=== PATIENT | male | born 1950 | race Caucasian/White ===

== ENCOUNTER 2020-01-30 18:45 | Inpatient (IN) | payer MEDICARE, SELFPAY ==
[2020-01-30 18:47] VITALS: BP 112/75; PULSE 69; RESP 18; TEMP 36.8; O2SAT 99; BMI 20.3
--- NOTE | 2020-01-30 18:50 | ECG_ITS ---
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
--- NOTE | 2020-01-30 18:50 | XRR_ITS ---
PROCEDURE INFORMATION: Exam: XR Chest, 1 View Exam date and time: 01/30/2020 7:11 PM Age: 69 years old Clinical indication: Shortness of breath; Additional info: AMS TECHNIQUE: Imaging protocol: XR of the chest Views: 1 view. COMPARISON: No relevant prior studies available. FINDINGS: Tubes, catheters and devices: Pacemaker. Lungs: COPD/chronic bronchitis. No visible active interstitial or alveolar airspace disease. Pleural space: Unremarkable. No pleural effusion. No pneumothorax. Heart/Mediastinum: Unremarkable. No cardiomegaly. Bones/joints: Mild scoliosis of the spine. XR/XR chest 1V portable [id number] IMPRESSION: Nonacute.
--- NOTE | 2020-01-30 18:51 | W.ED.AMS ---
HPI - Altered Mental Status General: Chief Complaint: Altered Mental Status Stated Complaint: ams/confusion Time Seen by Provider: 01/30/20 18:47 Source: patient and EMS Mode of arrival: EMS Limitations: altered mental status History of Present Illness: HPI narrative: 69-year-old male who presents with EMS. Patient states he believes he is homeless but he is quite confused. Patient walked into the [facility] restaurant and they called EMS as he was unable to answer many questions. He states he is HIV positive last thing he represents that he lived in [facility]. He does know his name and his birthdate but is unsure of the year. Patient gives very sporadic answers. History is difficult to obtain. Associated symptoms: Deny depression Review of Systems Const: Denies: fever(s), chills, body aches or change in appetite Eyes: Denies: blurry vision or eye discomfort ENMT: Denies: throat pain or dental pain Card: Denies: chest pain Resp: Denies: dyspnea GI: Denies: abdominal pain, nausea, vomiting or diarrhea : Denies: dysuria Musc: Denies: neck pain or back pain Skin/Breast: Denies: rash Neuro: Reports: confusion Psych: Denies: depression Oscar/Lymph: Denies: easy bruising All/Imm: Denies: urticaria Physical Exam Const: COMMON NORMALS: negative for patient oriented x3 EXAM LIMITATIONS: altered mental status GENERAL APPEARANCE: disheveled HENMT: COMMON NORMALS: normocephalic and atraumatic HEAD & SCALP: normocephalic and atraumatic Eye: COMMON NORMALS: Equal, round and reactive pupils present and EOMs intact bilaterally PUPIL: Yes Equal, round and reactive pupils present Neck/C-Spine: COMMON NORMALS: full ROM and supple Chest: COMMONS NORMALS: normal inspection of the chest and normal palpation of entire chest wall Resp: COMMON NORMALS: normal respiratory effort, No retractions, No use of accessory muscles and clear to auscultation bilaterally AUSCULTATION: clear to auscultation bilaterally Cardio: COMMON NORMALS: regular rate, regular rhythm and No murmurs present (Cardio) RATE: regular rate RHYTHM: regular rhythm GI: COMMON NORMALS: Normal to inspection, nondistended, normoactive bowel sounds present, Soft to palpation, non-tender and no masses PALPATION: Yes Soft to palpation Extremity: COMMON NORMALS: normal to inspection and full ROM Neuro: COMMON NORMALS: moves all extremities and no focal motor deficits; negative for patient oriented x3 Psych: COMMON NORMALS: cooperative; negative for mental status grossly normal and negative for Normal thought process present THOUGHT PROCESS: abnormal Skin: COMMON NORMALS: no rashes or lesions noted and no wounds GENERAL SKIN EXAM: no rashes or lesions noted Course Vital Signs: Vital signs: Vital Signs Temperature 98.2 F 01/30/20 18:47 Pulse Rate 81 01/30/20 20:12 Respiratory Rate 16 01/30/20 20:12 Blood Pressure 137/79 01/30/20 20:12 Pulse Oximetry 97 01/30/20 20:12 MDM - Altered Mental Status MDM Narrative: Medical decision making narrative: Patient presents here with altered mental status and is quite confused here. Patient's drug screen came back for methamphetamine is likely causing his confusion. Other work-up including CT head here are normal. Spoke to hospitalist and will admit for observation. Lab Data: Labs: Lab Results 01/30/20 01/30/20 01/30/20 Range/Units 19:00 19:00 19:00 WBC 4.0 (4.0-10.0) 10^3/ uL RBC 4.64 (4.1-5.3) 10^6/u L Hgb 13.6 (11.7-16.6) g/dL Hct 41.1 L (42.0-52.0) % MCV 88.6 (80-94) fL MCH 29.3 (28.0-34.0) pg MCHC 33.1 (30.0-36.0) g/dL RDW 12.9 (12.1-15.1) % Plt Count 184 (130-400) 10^3/c mm MPV 10.1 (7.4-10.4) fL Neut % (Auto) 65.5 % Lymph % (Auto) 15.7 % [place] % (Auto) 12.2 % Eos % (Auto) 5.2 % Baso % (Auto) 1.2 % Neut # (Auto) 2.63 (1.8-7.7) 10^3/u L Lymph # (Auto) 0.6 L (0.8-4.8) 10^3/u L Hope[place] # (Auto) 0.5 (0.2-0.9) 10^3/u L Eos # (Auto) 0.2 (0.0-0.8) 10^3/u L Baso # (Auto) 0.1 (0.0-0.1) 10^3/u L Nucleated RBC % (a uto) 0 % Nucleated RBCs # 0.0 /100WBC PT 12.80 (12.1-14.9) SECO NDS INR 0.94 (0.8-1.2) Sodium 135 L (136-145) mmol/L Potassium 3.6 (3.5-5.1) mmol/L Chloride 98 (98-107) mmol/L Carbon Dioxide 27 (22-29) mmol/L Anion Gap 13.6 (5-19) BUN 15 (8-23) mg/dL Creatinine 1.3 H (0.7-1.2) mg/dL GFR Calculation 55.1 L (90-130) mL/min Glucose 94 (65-115) mg/dL Calculated Osmolal ity 281 L (285-295) mOsm/k g Calcium 9.6 (8.5-10.5) mg/dL Total Bilirubin 0.5 (0.15-1.2) mg/dL AST 26 (0-40) U/L ALT 22 (0-41) U/L Alkaline Phosphata se 101 (40-130) IU/L Ammonia (16-60) umol/L Total Protein 7.7 (6.6-8.7) g/dL Albumin 4.3 (3.5-5.2) g/dL Globulin 3.4 (1.3-4.6) g/dL Urine Color (Yellow) Urine Appearance (CLEAR) Urine pH (5-7) Ur Specific Gravit y (1.005-1.030) Urine Protein (Negative) Urine Glucose (UA) (Normal) Urine Ketones (Negative) Urine Blood (Negative) Urine Nitrate (Negative) Urine Bilirubin (Negative) Urine Urobilinogen (Negative) mg/dL Ur Leukocyte Concepc[place] ase (Negative) Salicylates < 0.3 L (3-10) mg/dL Urine Opiates Scre en (Negative) ng/mL Acetaminophen < 5.0 L (10-30) ug/mL Ur Barbiturates Sc reen (Negative) ng/mL Ur Phencyclidine S crn (Negative) ng/mL Ur Amphetamines Sc reen (Negative) ng/mL U Benzodiazepines Scrn (Negative) ng/mL Urine Cocaine Scre en (Negative) ng/mL U Marijuana (THC) Screen (Negative) ng/mL Ethyl Alcohol < 10 (0-10) mg/dL 01/30/20 01/30/20 01/30/20 Range/Units 19:00 19:55 19:55 WBC (4.0-10.0) 10^3/ uL RBC (4.1-5.3) 10^6/u L Hgb (11.7-16.6) g/dL Hct (42.0-52.0) % MCV (80-94) fL MCH (28.0-34.0) pg MCHC (30.0-36.0) g/dL RDW (12.1-15.1) % Plt Count (130-400) 10^3/c mm MPV (7.4-10.4) fL Neut % (Auto) % Lymph % (Auto) % Hopewell % (Auto) % Eos % (Auto) % Baso % (Auto) % Neut # (Auto) (1.8-7.7) 10^3/u L Lymph # (Auto) (0.8-4.8) 10^3/u L Hopewell # (Auto) (0.2-0.9) 10^3/u L Eos # (Auto) (0.0-0.8) 10^3/u L Baso # (Auto) (0.0-0.1) 10^3/u L Nucleated RBC % (a uto) % Nucleated RBCs # /100WBC PT (12.1-14.9) SECO NDS INR (0.8-1.2) Sodium (136-145) mmol/L Potassium (3.5-5.1) mmol/L Chloride (98-107) mmol/L Carbon Dioxide (22-29) mmol/L Anion Gap (5-19) BUN (8-23) mg/dL Creatinine (0.7-1.2) mg/dL GFR Calculation (90-130) mL/min Glucose (65-115) mg/dL Calculated Osmolal ity (285-295) mOsm/k g Calcium (8.5-10.5) mg/dL Total Bilirubin (0.15-1.2) mg/dL AST (0-40) U/L ALT (0-41) U/L Alkaline Phosphata se (40-130) IU/L Ammonia 25 (16-60) umol/L Total Protein (6.6-8.7) g/dL Albumin (3.5-5.2) g/dL Globulin (1.3-4.6) g/dL Urine Color Yellow (Yellow) Urine Appearance Clear (CLEAR) Urine pH 6.5 (5-7) Ur Specific Gravit y 1.005 (1.005-1.030) Urine Protein Neg (Negative) Urine Glucose (UA) Norm (Normal) Urine Ketones Negative (Negative) Urine Blood Neg (Negative) Urine Nitrate Negative (Negative) Urine Bilirubin Neg (Negative) Urine Urobilinogen 4 H (Negative) mg/dL Ur Leukocyte Concepc[place] ase Negative (Negative) Salicylates (3-10) mg/dL Urine Opiates Scre en Negative (Negative) ng/mL Acetaminophen (10-30) ug/mL Ur Barbiturates Sc reen Negative (Negative) ng/mL Ur Phencyclidine S crn Negative (Negative) ng/mL Ur Amphetamines Sc reen Positive H (Negative) ng/mL U Benzodiazepines Scrn Negative (Negative) ng/mL Urine Cocaine Scre en Negative (Negative) ng/mL U Marijuana (THC) Screen Negative (Negative) ng/mL Ethyl Alcohol (0-10) mg/dL Imaging Data^: CXR: Attestation: I personally reviewed and interpreted this imaging study as follows: My impression: no acute abnormality CT Head: Radiologist's impression: [address] [address] [address] Scan Report Signed Patient: Jah Velasquez Unit #: [id number] : 1950 Age/Sex: 69 / M ADM Date: 01/30/20 Loc: ER Room/Bed: Attending Dr: Ordering Provider/Ordering MD: Bill Mart MD Date of Service: 01/30/20 Procedure(s): CT head wo con* [id number] Accession Number(s): [id number] Report Number: [id number] PROCEDURE INFORMATION: Exam: CT Head Without Contrast Exam date and time: 01/30/2020 6:59 PM Age: 69 years old Clinical indication: Altered mental status/memory loss; Confusion or disorientation; Patient HX: AMS TECHNIQUE: Imaging protocol: Computed tomography of the head without contrast. Radiation optimization: All CT scans at this facility use at least one of these dose optimization techniques: automated exposure control; mA and/or kV adjustment per patient size (includes targeted exams where dose is matched to clinical indication); or iterative reconstruction. COMPARISON: No relevant prior studies available. RADIATION DOSE METRICS: Total DLP (mGy-cm): 869.63 FINDINGS: Brain: No evidence of active or acute intracranial pathologic process, hemorrhage, or trauma. No visible evidence of diffuse cerebral edema or generalized demyelination. Mild small vessel ischemic disease with senile periventricular leukomalacia. No mass effect. No midline shift. Cerebral and cerebellar atrophy with ventricular dilatation greater than that anticipated for patient's chronological age. Cerebral ventricles: No ventriculomegaly. Bones/joints: Unremarkable. No acute fracture. Paranasal sinuses: Visualized sinuses are unremarkable. No fluid levels. Mastoid air cells: Visualized mastoid air cells are well aerated. Soft tissues: Unremarkable. Other findings: Motion artifact. CT/CT head wo con* [id number] IMPRESSION: 1. No evidence of active or acute intracranial pathologic process, hemorrhage, or trauma. 2. Mild small vessel ischemic disease with senile periventricular leukomalacia. 3. Cerebral and cerebellar atrophy with ventricular dilatation greater than that anticipated for patient's chronological age. EKG Data^: EKG 1: Attestation: I personally reviewed and interpreted this EKG as follows: EKG interpretation date: 01/30/20 EKG interpretation time: 18:57 Interpretation: paced rhythm hr [address] or t wave abnormalities qrs 143 qtc 445 Discharge Plan Discharge Patient Disposition: Admitted As Inpatient Admit Provider: Joanne Peña Clinical Impression: Methamphetamine abuse Altered mental status Qualifiers: Altered mental status type: unspecified Qualified Code(s): R41.82 - Altered mental status, unspecified Condition: Stable Coding Level of Care Code ED Teacher'S Assistant for [facility] Fwd Exam Comprehensive
[2020-01-30 19:27] LABS: Basophils # 0.1 10^3/uL (0.0-0.1); Basophils % 1.2 %; Eosinophils # 0.2 10^3/uL (0.0-0.8); Eosinophils % 5.2 %; Hematocrit 41.1 % (42.0-52.0); Hemoglobin 13.6 g/dL (11.7-16.6); Lymphocytes # 0.6 10^3/uL (0.8-4.8); Lymphocytes % 15.7 %; Mean Corpuscular HGB Conc 33.1 g/dL (30.0-36.0); Mean Corpuscular Hemoglobin 29.3 pg (28.0-34.0); Mean Corpuscular Volume 88.6 fL (80-94); Mean Platelet Volume 10.1 fL (7.4-10.4); Monocytes # 0.5 10^3/uL (0.2-0.9); Monocytes % 12.2 %; Neutrophils # 2.63 10^3/uL (1.8-7.7); Neutrophils % 65.5 %; Nucleated Red Blood Cells % 0 %; Platelet Count 184 10^3/cmm (130-400); Red Blood Count 4.64 10^6/uL (4.1-5.3); Red Cell Distribution Width 12.9 % (12.1-15.1)
[2020-01-30 19:34] LABS: INR 0.94 (0.8-1.2)
[2020-01-30 19:44] LABS: Alanine Aminotransferase 22 U/L (0-41); Albumin Level 4.3 g/dL (3.5-5.2); Alkaline Phosphatase 101 IU/L (40-130); Anion Gap 13.6 (5-19); Aspartate Amino Transferase 26 U/L (0-40); Blood Urea Nitrogen 15 mg/dL (8-23); Calcium 9.6 mg/dL (8.5-10.5); Carbon Dioxide 27 mmol/L (22-29); Chloride 98 mmol/L (98-107); Globulin 3.4 g/dL (1.3-4.6); Glomerular Filtration Rate 55.1 mL/min (90-130); Glucose 94 mg/dL (65-115); Osmolality Calculated 281 mOsm/kg (285-295); Potassium 3.6 mmol/L (3.5-5.1); Sodium 135 mmol/L (136-145); Total Bilirubin 0.5 mg/dL (0.15-1.2); Total Protein 7.7 g/dL (6.6-8.7)
[2020-01-30 19:46] LABS: Ammonia 25 umol/L (16-60)
[2020-01-30 19:48] LABS: Acetaminophen < 5.0 ug/mL (10-30); Alcohol Level < 10 mg/dL (0-10); Salicylate < 0.3 mg/dL (3-10)
[2020-01-30 20:03] LABS: Add Urine Microscopic? NO
[2020-01-30 20:12] VITALS: BP 137/79; PULSE 81; RESP 16; O2SAT 97
[2020-01-30 20:17] LABS: Bilirubin Urine Neg (Negative); Blood Urine Neg (Negative); Glucose Urine UA Norm (Normal); Ketones Urine Negative (Negative); Leukocyte Esterase Urine Negative (Negative); Nitrate Urine Negative (Negative); Protein Urine Neg (Negative); Specific Gravity, Urine 1.005 (1.005-1.030); Urine Appearance Clear (CLEAR); Urine Color Yellow (Yellow); Urobilinogen Urine 4 mg/dL (Negative); pH Urine 6.5 (5-7)
[2020-01-30 20:19] LABS: Amphetamines Screen Urine Positive (Negative); Barbiturates Screen Urine Negative (Negative); Benzodiazepines Screen Urine Negative (Negative); Cocaine Screen Urine Negative (Negative); Opiate Screen Urine Negative (Negative); PCP Screen Urine Negative (Negative); THC Screen Urine Negative (Negative)
[2020-01-30 21:00] VITALS: RESP 16
--- NOTE | 2020-01-30 21:11 | PC.NURSE ---
Report called to Fransico LÓPEZ on CSU unit.
[2020-01-30 21:15] VITALS: BP 125/85; PULSE 82; O2SAT 97
--- NOTE | 2020-01-30 21:25 | P.HP_ITS ---
Providers/Chief Complaint Admitting Physician: Joanne Peña MD Chief Complaint: ams/confusion History of Present Illness Jah Velasquez is a 69 year old male with unknown PMH but states he has HIV was brought to ER by EMS today for AMS. He walked into a [employer] restaurant today and was noted to be quite confused, so EMS was called. Since presentation here, he has been giving haphazard answers and is disoriented. Upon my evaluation he is able to tell me his name, states he is about 67, c/o abdominal pain, answers yes or no to some basic questions regarding pain, diarrhea, etc but overall is quite confused. He speech appears to be pressured and intermittently dysarthric. He follows commands to move all extremities and is able to ambulate to the bathroom independently though gait is slightly unsteady. Diagnostics in the ER notable for cr 1.3, normal salicylate and tylenol level but urine amphetamine screen +, ethyl alcohol negative. Review of Systems General: Reports: ROS unobtainable due to medical condition and ROS isa btainable due to mental status Medications/Allergies Home Medications Medication Instructions Recorded Confirmed Last Taken Type Unable to Assess 01/30/20 01/30/20 Unknown History Allergies Allergy/AdvReac Type Severity Reaction Status Date / Time Unable to Assess Allergy Verified 01/30/20 23:04 Vitals/I&O/Wt Last Vital Signs Temp 98.2 F 01/30/20 18:47 Pulse 81 01/30/20 20:12 Resp 16 01/30/20 20:12 BP 137/79 01/30/20 20:12 Pulse Ox 97 01/30/20 20:12 Weight last 48 hrs Weight 68.039 kg Physical Exam Narrative: EXAM NARRATIVE: GEN: Awake, disoriented , random haphazard answers, disheveled CVS: S1S2 N RS: CTA B/L Abd: Soft, nt/nd , bs+ 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, ambulates independently, gait is unsteady Data : 01/30/20 19:00 01/30/20 19:00 A&P Assessment and plan (1) Altered mental status: No past history available Ct head without any acute intracraial events, age related changes noted, no masses Differentials include methamphetamine intoxication, ?post ictal state, less likely meningitis given no neck stiffness or fever reported h/o HIV, check screening ag/ab, serum Cryptococcal ag given AMS If screen +, check Cd4 count and HIV VL admitted for close neuroobservation, aspiration and seizure precautions dysphagia screening multiple track desai noted over both hands with swelling over left hand, check blood cx and Us soft tissue left hand monitor off abx for now Status: Acute Qualifiers: Altered mental status type: unspecified Qualified Code(s): R41.82 - Altered mental status, unspecified (2) Methamphetamine abuse: continuous telemetry, monitor for arrhythmias or signs of withdrawal Status: Acute Attestations Medical Necessity Statement*: anticipate >2Midnight admission for evaluation and managemnet of AMS Coding Level of Care Code Acute Gastroenterology Nurse Practitioner for [facility] Fwd Diagnoses Altered mental status R41.82 Altered mental status type: unspecified Methamphetamine abuse F15.10
[2020-01-30 21:31] VITALS: BP 125/63; PULSE 70; RESP 22; TEMP 36.4; O2SAT 99
--- NOTE | 2020-01-30 22:11 | PC.NURSE ---
Patient admitted to room 111-2 via wheelchair and ER staff. Patient alert but lethargic. Patient able to answer questions but is not able to maintain attention for very long, Patient drifts in and out and was reaching for things that were not there. Patient unable to provide adequate medical history. Patient is slow to answer and at times falls asleep in the middle of his answer then wakes up and says what was the question. Patient is alert to person and place(hospital) but not aware of the situation or current time. Able to recall with prompting but only for a short while. Patient has no open areas on skin. Some bruising noted otherwise skin warm dry and intact. Mental status questionable moderate weakness noted. PERRLA with 5 mm pupil opening noted. gait unsteady but patient able to follow directions. No aggitation noted at this time.
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
[2020-01-30 23:26] LABS: SARS Covid-2 Antigen Negative (Negative)
[2020-01-30] MEDS: enoxaparin 40 mg/0.4 mL Syringe SUBCUT (23:55)
[2020-01-31] VITALS (12 sets, daily range): BP systolic 116–133; BP diastolic 63–86; PULSE 71–111; RESP 13–22; TEMP 36.1–36.9; O2SAT 96–98
[2020-01-31 04:42] LABS: HIV 1 & 2 Antibody Reactive (Non-Reactiv); HIV 1 & 2 Antigen Non-Reactive (Non-Reactiv)
[2020-01-31 06:52] LABS: Basophils % 1.5 %; Eosinophils # 0.3 10^3/uL (0.0-0.8); Eosinophils % 12.2 %; Hematocrit 40.3 % (42.0-52.0); Hemoglobin 13.3 g/dL (11.7-16.6); Lymphocytes # 0.7 10^3/uL (0.8-4.8); Lymphocytes % 26.7 %; Mean Corpuscular Volume 87.8 fL (80-94); Mean Platelet Volume 10.4 fL (7.4-10.4); Monocytes # 0.4 10^3/uL (0.2-0.9); Monocytes % 13.4 %; Neutrophils % 45.8 %; Nucleated Red Blood Cells % 0 %; Platelet Count 180 10^3/cmm (130-400); Red Blood Count 4.59 10^6/uL (4.1-5.3); Red Cell Distribution Width 12.8 % (12.1-15.1); White Blood Count 2.6 10^3/uL (4.0-10.0)
[2020-01-31 07:14] LABS: Alanine Aminotransferase 20 U/L (0-41); Albumin Level 3.7 g/dL (3.5-5.2); Alkaline Phosphatase 86 IU/L (40-130); Anion Gap 12.5 (5-19); Aspartate Amino Transferase 23 U/L (0-40); Blood Urea Nitrogen 16 mg/dL (8-23); Carbon Dioxide 26 mmol/L (22-29); Chloride 102 mmol/L (98-107); Globulin 3.2 g/dL (1.3-4.6); Glomerular Filtration Rate 60.4 mL/min (90-130); Glucose 92 mg/dL (65-115); Osmolality Calculated 285 mOsm/kg (285-295); Potassium 3.5 mmol/L (3.5-5.1); Sodium 137 mmol/L (136-145); Thyroid Stimulating Hormone 1.28 uIU/mL (0.27-4.20); Total Bilirubin 0.4 mg/dL (0.15-1.2); Total Protein 6.9 g/dL (6.6-8.7)
[2020-01-31 07:34] LABS: Estmated Average Glucose 103; Hemoglobin A1C 5.2 % (4.0-6.0)
[2020-01-31 07:48] LABS: Hepatitis A Antibody IgM Non-Reactive (Nonreactive); Hepatitis B Surface Antigen Non-Reactive (Nonreactive)
[2020-01-31 09:09] LABS: Hepatitis B Surface AB 13.3 (0-8.5)
[2020-01-31 09:10] LABS: Hepatitis B Core AB, Total Reactive (Nonreactive); Hepatitis C Virus Antibody Reactive (Nonreactive)
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
[2020-01-31] MEDS: enoxaparin 40 mg/0.4 mL Syringe SUBCUT (22:31)
--- NOTE | 2020-01-31 23:16 | USR_ITS ---
PROCEDURE INFORMATION: Exam: US Unlisted Ultrasound Procedure Exam date and time: 01/31/2020 8:32 AM Age: 69 years old Clinical indication: Symptoms: Swelling of left hand TECHNIQUE: Imaging protocol: Unlisted ultrasound procedure (eg, diagnostic, interventional). COMPARISON: No relevant prior studies available. FINDINGS: Procedural imaging: Ultrasound imaging was performed over the dorsal surface of the left hand with the patient pointed to pain in the left middle finger. Examination showed mild subcutaneous edema with small amount of interstitial fluid. No discrete fluid collection or masses were seen in this area.. US/US soft tissue/extremity [id number] IMPRESSION: There is mild subcutaneous edema in the area of patient pain and swelling. No other significant abnormality detected.
[2020-02-01] VITALS (27 sets, daily range): BP systolic 110–150; BP diastolic 68–91; PULSE 63–96; RESP 13–21; TEMP 29.4–37.1; O2SAT 96–98
[2020-02-01 03:58] LABS: Basophils % 1.3 %; Eosinophils # 0.4 10^3/uL (0.0-0.8); Eosinophils % 11.5 %; Hematocrit 39.1 % (42.0-52.0); Hemoglobin 12.7 g/dL (11.7-16.6); Lymphocytes % 32.3 %; Mean Corpuscular HGB Conc 32.5 g/dL (30.0-36.0); Mean Corpuscular Hemoglobin 29.1 pg (28.0-34.0); Mean Corpuscular Volume 89.7 fL (80-94); Mean Platelet Volume 9.9 fL (7.4-10.4); Monocytes # 0.4 10^3/uL (0.2-0.9); Monocytes % 11.8 %; Neutrophils # 1.34 10^3/uL (1.8-7.7); Neutrophils % 42.8 %; Nucleated Red Blood Cells % 0 %; Platelet Count 159 10^3/cmm (130-400); Red Blood Count 4.36 10^6/uL (4.1-5.3); Red Cell Distribution Width 12.8 % (12.1-15.1); White Blood Count 3.1 10^3/uL (4.0-10.0)
[2020-02-01 04:44] LABS: Alanine Aminotransferase 18 U/L (0-41); Albumin Level 3.8 g/dL (3.5-5.2); Alkaline Phosphatase 102 IU/L (40-130); Aspartate Amino Transferase 22 U/L (0-40); Blood Urea Nitrogen 22 mg/dL (8-23); Calcium 8.4 mg/dL (8.5-10.5); Carbon Dioxide 24 mmol/L (22-29); Chloride 102 mmol/L (98-107); Creatinine Clr Calc Pharmacy 53.4288; Globulin 2.6 g/dL (1.3-4.6); Glomerular Filtration Rate 50.5 mL/min (90-130); Glucose 107 mg/dL (65-115); Osmolality Calculated 286 mOsm/kg (285-295); Sodium 136 mmol/L (136-145); Total Bilirubin 0.2 mg/dL (0.15-1.2); Total Protein 6.4 g/dL (6.6-8.7); Vitamin B12 276 pg/mL (232-1245)
[2020-02-01 05:16] LABS: Folate Level 7.4 ng/mL (4.5-32.2)
--- NOTE | 2020-02-01 06:02 | PC.NURSE ---
PT SEEMS TO BE MORE ALERT. PT ANSWERS QUESTIONS APPROPRIATE. PT DENIES PAIN. WILL CONTINUE TO MONITOR.
--- NOTE | 2020-02-01 11:03 | PM.PN ---
Subjective Subjective: Interval history: Hemodynamically stable, afebrile, on RA. Noted hepatitis panel, had 300 mL urine output overnight. Working on re-establishing IV access. So far, has appreciated having double portions. Medications: Reviewed: Yes Medication Review Details: Active Medications Generic Name Dose Route Start Last Admin Trade Name Lazara PRN Reason Stop Dose Admin Acetaminophen 650 mg 01/30/20 22:37 Acetaminophen 32 5 Mg Tablet PO Q6H PRN Mild/Mod Pain Or Temp >/= 101 Cyanocobalamin 1,000 mcg 02/01/20 11:05 Cyanocobalamin 1 ,000 Mcg Tablet PO DAILY BRITTA Enoxaparin Sodium 40 mg 01/30/20 22:45 01/31/20 22:31 Enoxaparin 40 Mg /0.4 Ml Syringe SUBCUT 40 mg Q24H BRITTA Administration Folic Acid 1 mg 02/01/20 11:05 Folic Acid 1 Mg Tablet PO DAILY [facility] Ketoconazole 1 applic 01/31/20 18:00 02/01/20 10:16 Ketoconazole Cre am 15 Gm TOPICAL Not Given BID [facility] Unable to Assess Allergy (Verified 01/30/20 23:04) Vitals/I&O/Wt Last Vital Signs Temp 96.7 F L 02/01/20 10:56 Pulse 87 02/01/20 10:56 Resp 15 02/01/20 10:56 BP 113/88 02/01/20 10:56 Pulse Ox 96 02/01/20 10:56 01/31/20 02/01/20 02/01/20 22:59 06:59 14:59 Intake Total 1880 / 2480 240 / 240 Output Total 100 / 200 300 / 500 400 / 400 Balance -100 / 400 1580 / 1980 -160 / -160 Weight last 48 hrs Weight 68.039 kg Physical Exam Const: COMMON NORMALS: no acute distress, patient oriented x3 and alert GENERAL APPEARANCE: cooperative and comfortable NUTRITIONAL APPEARANCE: thin ORIENTATION/CONSCIOUSNESS: Yes awake HENMT: COMMON NORMALS: normocephalic, atraumatic, hearing grossly normal bilaterally and moist oral mucous membranes HEAD & SCALP: normocephalic and atraumatic TEETH & GINGIVA: Yes edentulous Eye: COMMON NORMALS: Equal, round and reactive pupils present, EOMs intact bilaterally and conjunctivae normal CONJUNCTIVA: Yes conjunctivae normal PUPIL: Yes Equal, round and reactive pupils present Neck/C-Spine: COMMON NORMALS: full ROM GENERAL: Yes normal visual inspection and Yes trachea midline Chest: CHEST: Yes Pacemaker present and Yes other (lipoma) Resp: COMMON NORMALS: normal respiratory effort, No retractions, No use of accessory muscles and clear to auscultation bilaterally EFFORT & INSPECTION: Yes able to speak in complete sentences, Yes symmetric chest movement and No tachypneic AUSCULTATION: clear to auscultation bilaterally Cardio: COMMON NORMALS: regular rate, regular rhythm, S1 normal heart sound present, S2 normal heart sound present and No murmurs present (Cardio) RATE: regular rate RHYTHM: regular rhythm HEART SOUNDS: S1 normal heart sound present and S2 normal heart sound present GI: COMMON NORMALS: Normal to inspection, nondistended, normoactive bowel sounds present, Soft to palpation and non-tender PALPATION: Yes Soft to palpation Extremity: COMMON NORMALS: normal to inspection, full ROM, no clubbing, cyanosis or edema and no pedal edema Neuro: COMMON NORMALS: patient oriented x3, moves all extremities, no focal motor deficits and no sensory deficits noted SENSORIUM/ORIENTATION: Yes alert Psych: COMMON NORMALS: mental status grossly normal, Normal thought process present, cooperative, normal affect and speech normal ATTITUDE: Yes calm SPEECH: Yes normal speech THOUGHT PROCESS: Normal thought process present Skin: COMMON NORMALS: no jaundice, no petechiae and no mottling GENERAL SKIN EXAM: dry skin OTHER: -dry, flaky skin on scalp, face -erythematous papular rash on neck -lipoma on sternal area Data : 02/01/20 03:43 02/01/20 03:43 Micro: Microbiology 01/30/20 01:12 Blood Culture - Preliminary Blood NEGATIVE TO DATE 01/30/20 00:20 Blood Culture - Preliminary Blood NEGATIVE TO DATE 01/31/20 06:05 Cryptococcal Antigen - Final Blood A&P Assessment and plan (1) Altered mental status: -unclear etiology but noted amphetamines + on UDS -has reported hx of HIV, + screen, pending CD4 count and viral load -cryptococcal antigen negative -blood cx: prelim negative -no clinical indication of infection based on labs, lack of fever, imaging -noted atrophy that is greater than expected for age so may have some degree of dementia -neurochecks, fall, aspiration precautions -PT/OT/ST evaluations appreciated -ammonia, TSH wnl, negative EtOH -low normal B12, folate; start on supplementation Status: Acute Qualifiers: Altered mental status type: unspecified Qualified Code(s): R41.82 - Altered mental status, unspecified (2) Methamphetamine abuse: -UDS positive for amphetamines, noted track desai on bilateral UEs Status: Acute (3) HIV antibody positive: -unknown viral load, CD4 count; ordered -has been off meds since last year (by personal choice per his admission) -had previously been on Tivicay, Descovy, Prezcobix and prophylactic treatment (Bactrim, fluconazole) -hepatitis C +, order viral load -noted hepatitis B core antibody positive, Hep B surface antibody +, non-reactive Hep B surface antigen; indicative of past infection with subsequent immunity Status: Acute (4) Pacemaker: -telemetry monitoring Status: Acute Additional A&P Information -no baseline hx to reference per review of medical record; just moved to [facility] from [place] -seborrheic dermatitis; on ketoconazole -VEE, start on gentle IVF hydration, continue to monitor renal function -regular diet as tolerated; double portions, Ensure -continue to monitor vital signs -DVT ppx with lovenox -Dispo: homeless -Code status: FULL code Attestations Medical Necessity Statement*: Patient requires hospitalization for continued monitoring of mental status, IVF hydration given acute renal impairment. Time Spent in Patient Care: 16 - 35 minutes (>than 50% of time spent in counselling and/or direct pt care on unit). Coding Level of Care Code Acute Mill Representative for [facility] Fwd Exam Comprehensive Diagnoses Altered mental status R41.82 Altered mental status type: unspecified Methamphetamine abuse F15.10 HIV antibody positive Z21 Pacemaker Z95.0
[2020-02-01] MEDS: folic acid 1 mg Tablet PO (12:18)
[2020-02-01] MEDS: cyanocobalamin 1,000 mcg Tablet 1000 MCG PO (12:19)
[2020-02-01] MEDS: sodium chloride 0.9% 1,000 ML 75 ML IV (12:19)
[2020-02-01] MEDS: ketoconazole Cream 15 gm 1 APPLIC TOPICAL (17:21)
[2020-02-01] MEDS: enoxaparin 40 mg/0.4 mL Syringe SUBCUT (22:37)
[2020-02-02] VITALS (14 sets, daily range): BP systolic 91–140; BP diastolic 69–83; PULSE 63–92; RESP 16–20; TEMP 36.3–36.8; O2SAT 95–100
[2020-02-02] MEDS: sodium chloride 0.9% 1,000 ML 75 ML IV (01:04)
--- NOTE | 2020-02-02 02:23 | PC.NURSE ---
PT IS RESTING IN BED. PT ANSWERING QUESTIONS APPROPRIATELY. PT DENIES PAIN. WILL CONTINUE TO MONITOR.
[2020-02-02 05:05] LABS: Basophils # 0.1 10^3/uL (0.0-0.1); Basophils % 1.8 %; Eosinophils # 0.4 10^3/uL (0.0-0.8); Hematocrit 36.4 % (42.0-52.0); Hemoglobin 12.1 g/dL (11.7-16.6); Lymphocytes # 0.8 10^3/uL (0.8-4.8); Lymphocytes % 28.4 %; Mean Corpuscular HGB Conc 33.2 g/dL (30.0-36.0); Mean Corpuscular Hemoglobin 29.4 pg (28.0-34.0); Mean Corpuscular Volume 88.3 fL (80-94); Mean Platelet Volume 9.9 fL (7.4-10.4); Monocytes # 0.4 10^3/uL (0.2-0.9); Neutrophils # 1.21 10^3/uL (1.8-7.7); Neutrophils % 42.4 %; Nucleated Red Blood Cells % 0 %; Platelet Count 155 10^3/cmm (130-400); Red Blood Count 4.12 10^6/uL (4.1-5.3); Red Cell Distribution Width 12.7 % (12.1-15.1); White Blood Count 2.9 10^3/uL (4.0-10.0)
[2020-02-02 05:22] LABS: Alanine Aminotransferase 15 U/L (0-41); Albumin Level 3.3 g/dL (3.5-5.2); Alkaline Phosphatase 75 IU/L (40-130); Anion Gap 11.8 (5-19); Aspartate Amino Transferase 18 U/L (0-40); Blood Urea Nitrogen 19 mg/dL (8-23); Carbon Dioxide 23 mmol/L (22-29); Chloride 107 mmol/L (98-107); Globulin 2.8 g/dL (1.3-4.6); Glomerular Filtration Rate 66.8 mL/min (90-130); Glucose 99 mg/dL (65-115); Osmolality Calculated 288 mOsm/kg (285-295); Potassium 3.8 mmol/L (3.5-5.1); Sodium 138 mmol/L (136-145); Total Bilirubin 0.2 mg/dL (0.15-1.2); Total Protein 6.1 g/dL (6.6-8.7)
--- NOTE | 2020-02-02 05:49 | PC.NURSE ---
PT HAD AN UNEVENTFUL NIGHT. PT RESTED WITH EYES CLOSED MINUS SOME DISTRACTIONS FROM THE NEIGHBORING PT. DENIES PAIN. WILL CONTINUE TO MONITOR.
[2020-02-02] MEDS: ketoconazole Cream 15 gm 1 APPLIC TOPICAL ×2 (08:19→18:17)
[2020-02-02] MEDS: cyanocobalamin 1,000 mcg Tablet 1000 MCG PO (08:19)
[2020-02-02] MEDS: folic acid 1 mg Tablet PO (08:19)
--- NOTE | 2020-02-02 09:36 | P.DS_ITS ---
Discharge Providers Date of Admission: 01/30/20 22:38 Date of Discharge: February 03, 2020 Attending Provider at Admission: Joanne Peña MD Attending Provider at Discharge: Adrienne Mathews MD Consults: None Primary Care Provider: None Diagnoses at Discharge Discharge Diagnosis (1) Altered mental status: Status: Resolved Permanent problem details: -at baseline mental status Qualifiers: Altered mental status type: unspecified Qualified Code(s): R41.82 - Altered mental status, unspecified (2) Methamphetamine abuse: Status: Acute Permanent problem details: -UDS positive for amphetamines, noted track desai on bilateral UEs -unknown viral load, CD4 count; ordered -has been off meds since last year (by personal choice per his admission) -had previously been on Tivicay, Descovy, Prezcobix and prophylactic treatment (Bactrim, fluconazole) -hepatitis C +, undetectable viral load -noted hepatitis B core antibody positive, Hep B surface antibody +, non- reactive Hep B surface antigen; indicative of past infection with subsequent immunity (3) HIV antibody positive: Status: Acute Permanent problem details: -HIV positive since 1999 (4) Pacemaker: Status: Acute Permanent problem details: -placed in 2011 due to complete heart block Other Information Additional DC diagnoses/information: -unknown viral load, CD4 count; ordered -has been off meds since last year (by personal choice per his admission) -had previously been on Tivicay, Descovy, Prezcobix and prophylactic treatment (Bactrim, fluconazole) -hepatitis C +, order viral load -noted hepatitis B core antibody positive, Hep B surface antibody +, non- reactive Hep B surface antigen; indicative of past infection with subsequent immunity Reason for Visit Reason for Visit: ams/confusion Hospital Course Hospital Course Patient was admitted to the cardiac stepdown unit after having been found to be altered presumably due to methamphetamine use based on positive urine drug screen. He had further work-up done due to admitting to being HIV positive and off medications for about a year now. Cryptococcal antigen was negative, blood cultures have been negative, he has consistently been afebrile and hemodynamically stable. Mental status has returned to baseline. He did develop some acute renal impairment which has resolved with gentle IV fluid hydration. Due to need to evaluate HIV status, CD4 count was ordered as well as viral load, both of which are pending. He was found to be positive for hepatitis C as well, viral load for this is pending as well. He would benefit from follow-up with infectious disease, as well as establishing primary care follow-up. However it seems that he is intent on traveling elsewhere. Strongly advised against this particularly under the circumstances including lack of social support or resources at this time. Discharge delayed by one day due to lack of bed availability at [facility], available today. No changes overnight. Physical Exam Const: COMMON NORMALS: no acute distress, patient oriented x3 and alert GENERAL APPEARANCE: cooperative and comfortable NUTRITIONAL APPEARANCE: thin ORIENTATION/CONSCIOUSNESS: Yes awake HENMT: COMMON NORMALS: normocephalic, atraumatic, hearing grossly normal bilaterally and moist oral mucous membranes HEAD & SCALP: normocephalic and atraumatic TEETH & GINGIVA: Yes edentulous Eye: COMMON NORMALS: Equal, round and reactive pupils present, EOMs intact bilaterally and conjunctivae normal CONJUNCTIVA: Yes conjunctivae normal PUPIL: Yes Equal, round and reactive pupils present Neck/C-Spine: COMMON NORMALS: full ROM GENERAL: Yes normal visual inspection and Yes trachea midline Chest: CHEST: Yes Pacemaker present and Yes other (lipoma) Resp: COMMON NORMALS: normal respiratory effort, No retractions, No use of accessory muscles and clear to auscultation bilaterally EFFORT & INSPECTION: Yes able to speak in complete sentences, Yes symmetric chest movement and No tachypneic AUSCULTATION: clear to auscultation bilaterally Cardio: COMMON NORMALS: regular rate, regular rhythm, S1 normal heart sound present, S2 normal heart sound present and No murmurs present (Cardio) RATE: regular rate RHYTHM: regular rhythm HEART SOUNDS: S1 normal heart sound present and S2 normal heart sound present GI: COMMON NORMALS: Normal to inspection, nondistended, normoactive bowel sounds present, Soft to palpation and non-tender PALPATION: Yes Soft to palpation Extremity: COMMON NORMALS: normal to inspection, full ROM, no clubbing, cyanosis or edema and no pedal edema Neuro: COMMON NORMALS: patient oriented x3, moves all extremities, no focal motor deficits and no sensory deficits noted SENSORIUM/ORIENTATION: Yes alert Psych: COMMON NORMALS: mental status grossly normal, Normal thought process present, cooperative, normal affect and speech normal ATTITUDE: Yes calm SPEECH: Yes normal speech THOUGHT PROCESS: Normal thought process present Skin: COMMON NORMALS: no jaundice, no petechiae and no mottling GENERAL SKIN EXAM: dry skin OTHER: -dry, flaky skin on scalp, face -erythematous papular rash on neck -lipoma on sternal area Discharge Data Data Completed and Pending: Completed Studies During Hospitalization Category Date Time Status CT head wo con* 7 0450 Urgent Cat Scan 01/30/20 18:50 Completed XR chest 1V ronald ble 81993 Urgent Exams 01/30/20 18:50 Completed XR hand LT 2V 731 20 Routine Exams 01/30/20 23:16 Completed US soft tissue/ex tremity 40941 Rout ine Ultrasound 01/31/20 23:16 Completed Pending at discharge Category Date Time Status Blood Culture Sta t Lab 01/30/20 01:12 Results HIV RNA (PCR) Jalen nt Stat Lab 01/31/20 11:05 Received Hepatitis C RNA V iral Load Qnt Rout ine Lab 02/01/20 05:06 Received Miscellaneous Pema t Routine Lab 01/31/20 11:05 Received Labs from last 24 hours 02/02/20 02/02/20 02/01/20 04:52 04:52 05:06 WBC 2.9 L RBC 4.12 Hgb 12.1 Hct 36.4 L MCV 88.3 MCH 29.4 MCHC 33.2 RDW 12.7 Plt Count 155 MPV 9.9 Neut % (Auto) 42.4 Lymph % (Auto) 28.4 [place] % (Auto) 14.0 Eos % (Auto) 13.0 Baso % (Auto) 1.8 Neut # (Auto) 1.21 L Lymph # (Auto) 0.8 [place] # (Auto) 0.4 Eos # (Auto) 0.4 Baso # (Auto) 0.1 Nucleated RBC % (a uto) 0 Nucleated RBCs # 0.0 Sodium 138 Potassium 3.8 Chloride 107 Carbon Dioxide 23 Anion Gap 11.8 BUN 19 Creatinine 1.1 GFR Calculation 66.8 L Glucose 99 Calculated Osmolal ity 288 Calcium 8.0 L Total Bilirubin 0.2 AST 18 ALT 15 Alkaline Phosphata se 75 Total Protein 6.1 L Albumin 3.3 L Globulin 2.8 HCV RNA (PCR) IUs/ ml Pending HCV RNA (PCR) IU l og10 Pending Vitals: Last Vital Signs Temp 97.6 F 02/02/20 08:00 Pulse 71 02/02/20 07:18 Resp 20 H 02/02/20 07:18 BP 138/83 02/02/20 07:18 Pulse Ox 98 02/02/20 07:18 Discharge Plan Discharge Patient Disposition: Home Condition: Stable Prescriptions: New Vitamin B-12 1,000 mcg Tablet 1,000 mcg PO DAILY Qty: 30 RF: 0 folic acid 1 mg Tablet 1 mg PO DAILY Qty: 30 RF: 0 ketoconazole 2 % Cream 1 applic topical BID Qty: 30 RF: 0 Discharge Orders: Discharge Order (Routine); Ordered 02/03/20 Ordered By: Adrienne Mathews Discharge Diet: Regular Discharge Activity: Increase activity as tolerated Discharge Attestations Time Spent in Discharge Care*: greater than 30 min Specific Discharge Activities: educating patient, discussing with test case developer/social workers/dc planners, documenting/other paperwork and evaluating patient/reviewing data Status at Discharge: Cognitive status at discharge: cognitively intact , Behavioral status at discharge: cooperative and independent in ADL's , Functional status at discharge: independent ambulation Overall status at discharge: patient is progressing back to baseline Quality Metrics Clinical Quality Measures During this hospital stay, did patient experience: None Coding Level of Care Code Acute Final Inspector Balance Wheel for [facility] Fwd Exam Comprehensive Diagnoses Altered mental status R41.82 Altered mental status type: unspecified Methamphetamine abuse F15.10 HIV antibody positive Z21 Pacemaker Z95.0
--- NOTE | 2020-02-02 11:00 | PC.NURSE ---
patient given material on the [facility] in [place], [place] where he wanted to go. patient and social human services assistants aware of this number and tried to call facility to be able to get the patient help after discharge.
--- NOTE | 2020-02-02 11:14 | DCPLANNER ---
IMM completed with pt 02/02/20 @ 0908 and copy of rights given to pt.
[2020-02-02 12:02] LABS: HEP C RNA Viral Load Quant <1.18 NOT DETECTED Log IU/mL (NOT DETECTED); HEP C RNA Viral Load Quant <15 NOT DETECTED IU/mL (NOT DETECTED)
--- NOTE | 2020-02-02 15:55 | PC.NURSE ---
patient also given the good [facility] clinic number to help set up arrangement after transportation. Checo from social science manager also working on this matter.
--- NOTE | 2020-02-02 18:37 | PC.NURSE ---
patient had an uneventful shift. numbers to the shelters provided. will continue to work with case management to get patient placement. needs within reach.
--- NOTE | 2020-02-02 18:52 | PM.PN ---
Subjective Subjective: Interval history: Patient seen and examined, seen ambulating in hallway, seems to be in good spirits, he is interested in returning to [place] if possible. This is challenging as he currently has no personal belongings, financial or social resources. We will continue to work with drug abuse social worker on this, unfortunately no bed availability at a local group home. [facility] [place] [facility]. Hemodynamically stable, had 600 mL urine output overnight. Undetectable hepatitis C viral load. Medications: Reviewed: Yes Medication Review Details: Active Medications Generic Name Dose Route Start Last Admin Trade Name Freq PRN Reason Stop Dose Admin Acetaminophen 650 mg 01/30/20 22:37 Acetaminophen 32 5 Mg Tablet PO Q6H PRN Mild/Mod Pain Or Temp >/= 101 Cyanocobalamin 1,000 mcg 02/01/20 11:05 02/02/20 08:19 Cyanocobalamin 1 ,000 Mcg Tablet PO 1,000 mcg DAILY BRITTA Administration Enoxaparin Sodium 40 mg 01/30/20 22:45 02/01/20 22:37 Enoxaparin 40 Mg /0.4 Ml Syringe SUBCUT 40 mg Q24H BRITTA Administration Folic Acid 1 mg 02/01/20 11:05 02/02/20 08:19 Folic Acid 1 Mg Tablet PO 1 mg DAILY BRITTA Administration Ketoconazole 1 applic 01/31/20 18:00 02/02/20 18:17 Ketoconazole Cre am 15 Gm TOPICAL 1 unit BID BRITTA Administration No Known Allergies Allergy (Verified 02/01/20 18:57) Vitals/I&O/Wt Last Vital Signs Temp 97.6 F 02/02/20 15:42 Pulse 92 02/02/20 14:37 Resp 18 02/02/20 14:37 BP 102/74 02/02/20 14:37 Pulse Ox 97 02/02/20 14:37 02/02/20 02/02/20 02/02/20 06:59 14:59 22:59 Intake Total 1056.25 / 2376.25 480 / 480 Output Total 600 / 1250 700 / 700 Balance 456.25 / 1126.25 -220 / -220 Physical Exam Const: COMMON NORMALS: no acute distress, patient oriented x3 and alert GENERAL APPEARANCE: cooperative and comfortable NUTRITIONAL APPEARANCE: thin ORIENTATION/CONSCIOUSNESS: Yes awake HENMT: COMMON NORMALS: normocephalic, atraumatic, hearing grossly normal bilaterally and moist oral mucous membranes HEAD & SCALP: normocephalic and atraumatic TEETH & GINGIVA: Yes edentulous Eye: COMMON NORMALS: Equal, round and reactive pupils present, EOMs intact bilaterally and conjunctivae normal CONJUNCTIVA: Yes conjunctivae normal PUPIL: Yes Equal, round and reactive pupils present Neck/C-Spine: COMMON NORMALS: full ROM GENERAL: Yes normal visual inspection and Yes trachea midline Chest: CHEST: Yes Pacemaker present and Yes other (lipoma) Resp: COMMON NORMALS: normal respiratory effort, No retractions, No use of accessory muscles and clear to auscultation bilaterally EFFORT & INSPECTION: Yes able to speak in complete sentences, Yes symmetric chest movement and No tachypneic AUSCULTATION: clear to auscultation bilaterally Cardio: COMMON NORMALS: regular rate, regular rhythm, S1 normal heart sound present, S2 normal heart sound present and No murmurs present (Cardio) RATE: regular rate RHYTHM: regular rhythm HEART SOUNDS: S1 normal heart sound present and S2 normal heart sound present GI: COMMON NORMALS: Normal to inspection, nondistended, normoactive bowel sounds present, Soft to palpation and non-tender PALPATION: Yes Soft to palpation Extremity: COMMON NORMALS: normal to inspection, full ROM, no clubbing, cyanosis or edema and no pedal edema Neuro: COMMON NORMALS: patient oriented x3, moves all extremities, no focal motor deficits, no sensory deficits noted and gait normal SENSORIUM/ORIENTATION: Yes alert Psych: COMMON NORMALS: mental status grossly normal, Normal thought process present, cooperative, normal affect and speech normal ATTITUDE: Yes calm SPEECH: Yes normal speech THOUGHT PROCESS: Normal thought process present Skin: COMMON NORMALS: no jaundice, no petechiae and no mottling GENERAL SKIN EXAM: dry skin OTHER: -dry, flaky skin on scalp, face -erythematous papular rash on neck -lipoma on sternal area Data : 02/02/20 04:52 02/02/20 04:52 A&P Assessment and plan (1) Altered mental status: -unclear etiology but noted amphetamines + on UDS -has reported hx of HIV, + screen, pending CD4 count and viral load -cryptococcal antigen negative -blood cx: prelim negative -no clinical indication of infection based on labs, lack of fever, imaging -noted atrophy that is greater than expected for age so may have some degree of dementia -neurochecks, fall, aspiration precautions -PT/OT/ST evaluations appreciated -ammonia, TSH wnl, negative EtOH -low normal B12, folate; start on supplementation Status: Resolved Qualifiers: Altered mental status type: unspecified Qualified Code(s): R41.82 - Altered mental status, unspecified (2) Methamphetamine abuse: -UDS positive for amphetamines, noted track desai on bilateral UEs Status: Acute (3) HIV antibody positive: -unknown viral load, CD4 count; ordered -has been off meds since last year (by personal choice per his admission) -had previously been on Tivicay, Descovy, Prezcobix and prophylactic treatment (Bactrim, fluconazole) -hepatitis C +, undetectable viral load -noted hepatitis B core antibody positive, Hep B surface antibody +, non-reactive Hep B surface antigen; indicative of past infection with subsequent immunity Status: Acute (4) Pacemaker: -telemetry monitoring Status: Acute Additional A&P Information -no baseline hx to reference per review of medical record; just moved to [facility] from [place] -seborrheic dermatitis; on ketoconazole -VEE, improved with gentle IVF hydration -regular diet as tolerated; double portions, Ensure -continue to monitor vital signs -DVT ppx with lovenox -Dispo: homeless, trying to get him to group home -Code status: FULL code Attestations Medical Necessity Statement*: Patient requires hospitalization for continued care pending appropriate disposition. Time Spent in Patient Care: 16 - 35 minutes (>than 50% of time spent in counselling and/or direct pt care on unit). Coding Level of Care Code Acute Live Truck Technician for Meaghan Lyon Diagnoses Altered mental status R41.82 Altered mental status type: unspecified Methamphetamine abuse F15.10 HIV antibody positive Z21 Pacemaker Z95.0
--- NOTE | 2020-02-02 19:46 | PC.NURSE ---
Patient is A & O x4 at this time. Patient has been educated to not get up without assistance and has been oriented to his call light and verbalized understanding.
[2020-02-02] MEDS: enoxaparin 40 mg/0.4 mL Syringe SUBCUT (21:22)
--- NOTE | 2020-02-02 21:43 | PC.NURSE ---
Dr. Cedeno notified of patient having a pacemaker and appearing to have episodes of bradycardia on the pvc monitor. Ordered pacemaker interrogation.
[2020-02-03 03:12] VITALS: BP 106/63; PULSE 76; RESP 13; TEMP 36.6; O2SAT 96
--- NOTE | 2020-02-03 04:16 | PC.NURSE ---
Patient has no complaints at this time. Will monitor.
[2020-02-03 05:08] VITALS: PULSE 74
[2020-02-03 07:24] VITALS: BP 122/80; PULSE 88; RESP 19; TEMP 36.6; O2SAT 100
[2020-02-03] MEDS: ketoconazole Cream 15 gm 1 APPLIC TOPICAL (08:52)
[2020-02-03] MEDS: folic acid 1 mg Tablet PO (08:52)
[2020-02-03] MEDS: cyanocobalamin 1,000 mcg Tablet 1000 MCG PO (08:52)
--- NOTE | 2020-02-03 09:04 | PM.MISC ---
Miscellaneous Note Purpose of Documentation: Patient discharged today as noted in discharge summary. No changes noted overnight.
[2020-02-03 09:10] VITALS: BP 122/80; PULSE 88; RESP 19; TEMP 36.6; O2SAT 100
--- NOTE | 2020-02-03 09:10 | PC.NURSE ---
notified pharmacy that we needed meds to beds for patient discharge medications.
--- NOTE | 2020-02-03 10:40 | PC.NURSE ---
discharge instructions given and verbalized an understanding. ride set up by case managment. ride here and patient taken out via wheelchair.
[2020-02-03 15:04] LABS: HIV RNA (CPY/ML) 4.95 (NOT DETECTED); HIV RNA LOG 88300 copies/mL (NOT DETECTED)
== END 2020-02-03 10:40 | disposition home or self-care (01) | DRG 897 ==
LOC: ER 20:27 → CSU 20:34
PROVIDERS: Admitting Provider Student in an Organized Health Care Education/Training Program; Emergency Provider Emergency Medicine; Visit Provider Family Medicine
DX: F15.10 Other stimulant abuse, uncomplicated (principal); B20 Human immunodeficiency virus [HIV] disease; N17.9 Acute kidney failure, unspecified; Z95.0 Presence of cardiac pacemaker; L21.9 Seborrheic dermatitis, unspecified; B19.20 Unspecified viral hepatitis C without hepatic coma; Z59.0 Homelessness
CPT/HCPCS: 12345; 36415; 70450; 71045; 73120; 76882; 80053; 80306; 80307; 81003; 82140; 82607; 82746; 83036; 84443; 85025; 85610; 86355; 86357; 86359; 86360; 86705; 86706; 86709; 86803; 87040; 87327; 87340; 87426; 87522; 87536; 87806; 92523; 92610; 93005; 96372; 97161; 97165; 97530; 99282; G0378; J1650; J7030